=== PATIENT | male | born 1965 | race Caucasian/White ===

== ENCOUNTER 2017-09-03 14:07 | Inpatient (IN) | payer BC, OTHER ==
[~2017-09-03] VITALS: Ht 182.9 cm; Wt 77.1 kg
--- NOTE | 2017-09-03 15:30 | NUR ---
Pre Assessment: Pre- Assessment done at intake office, client 51 y/o male who is A/O X 4, and presents with a flushed face, fine and gross hand tremors, and diaphoretic. Client is coming from home and appropriately dressed, but disheveled with dirt on his hands and under his nails. Client makes appropriate eye contact and pleasant upon approach. Pt. is hyperverbal and his vitals in the intake office were BP: 111/78 P: 120 RR:18 O2sat 99%. T: 98.7 and denies any pain. Pt. states he has a past medical history of Dyslexia and ADHD and reports a history of Hydrocele. Pt. appears agitated and anxious but is completely cooperative at this point. Pt. denies HI/SI/AH and VH at this time. Medications taken at home: Centrum daily multivitamin PO daily Substance History: Pt. first began drinking at age 16. Currently pt. consumes 2L of vodka or whisky daily. Pt. has been drinking 2L for the past 25 years. Pt.s last drink was at 1200 today. Protocol regarding vitals Q4H, UDS, Blood work, and controlled substances discuss with client. He verbalizes understanding. PCP: I've only seen the juan f once and I don't know his name.
[2017-09-03] MEDS ORDERED: ONDANSETRON ODT 4 MG TAB.RAPDIS SL PRN (15:45)
[2017-09-03] MEDS ORDERED: LOPERAMIDE HCL 2 MG CAPSULE PO PRN ×2 (15:45)
[2017-09-03] MEDS ORDERED: LORAZEPAM 1 MG TABLET PO PRN (15:45)
[2017-09-03] MEDS ORDERED: LORAZEPAM 2 MG/1 ML VIAL IM PRN (15:45)
[2017-09-03] MEDS ORDERED: DICYCLOMINE HCL 20 MG TABLET PO PRN (15:45)
[2017-09-03] MEDS ORDERED: MIRALAX 17 GM POWD.PACK PO PRN (15:45)
[2017-09-03] MEDS ORDERED: ONDANSETRON 4 MG/2 ML VIAL IM PRN (15:45)
[2017-09-03] MEDS ORDERED: MAGNESIUM HYDROXIDE 30 ML LIQUID UDC PO PRN (15:45)
[2017-09-03] MEDS ORDERED: MAG HYDROX/AL HYDROX/SIMETH 30 ML LIQUID UDC PO PRN (15:45)
[2017-09-03] MEDS ORDERED: THIAMINE HCL 200 MG/2 ML VIAL IM ONE (15:45)
--- NOTE | 2017-09-03 15:45 | NUR ---
Admission Note: Pt. is 51 y/o male admitted for the medically supervised withdrawal of ETOH. Pt.s last drink was today at 1200 but states that in the last week or so if he does not drink at least one shot of vodka or whisky an hour he begins to shake. Pt. is appropriately dressed, but is unkempt and disheveled, with dirt on his hands. Upon approach pt. is pleasant, but guarded. Pt. is A/O X 4 hyperverbal, anxious and restless. Pt. maintains proper eye contact. Pt. states that this is his first time in treatment. He states the reason he came in was because Mandie never felt this way before. Stating that this is the first time hes ever felt withdrawal symptoms from not drinking consistently throughout the day. Pt. denies a history of seizures. Substance History: 1.ETOH : 2L daily for the past 25 years. Last use was today 09/03/2017 at 1200. Pt. states he first began consuming alcohol at age 16. Pt. states that he is seeking treatment today because hes starting to get tremors if he doesnt have a drink every hour. Pt. states he has been drinking two liters of vodka or whisky daily for the past 25 years. Pt. reports having used multiple substances in his lifetime but denies ever being addicted to anything or consistently using anything other than ETOH. Pt. states that the last time he was sober he lasted 4 years and it was about 10 years ago. Pt. states that he doesnt know why he drinks, that hes never really thought of it. Pt. also states that hes blacked out a handful of times while drinking but that its unusual. He reports that its negatively affected his life causing him a DUI and two divorces. His vitals are as follows BP: 111/78 P: 120 RR:18 O2sat 99%. T: 98.7 and denies any pain. Pt. states he has a past medical history of Dyslexia and ADHD and reports a history of Hydrocele, and a damaged rotator cuff on his right shoulder. Skin check performed and skin clean dry and intact. Bowel sounds active X 4 quadrants. Lung sounds clear. Pt. follows a regular diet at home and reports an allergy to cactus. Pt. states he smokes approximately 15 cigarettes a day. Currently pt. has a CIWA of 15. Pt. currently lives with his mother and counts her as his only support system. Pt. states that he has a son but has minimal contact with him. Pt. states he has a PCP but does not remember his name because hes only seen him once. Educated pt. on his plan of care. The units policies and procedures. Encouraged pt. to verbalize any concerns and emotions. Will provide pt. with a safe and structured environment. Will continue to monitor pt.s behavior for safety.
[2017-09-03] MEDS: LORAZEPAM 1 MG TABLET PO SCH ×2 (16:22→21:05)
[2017-09-03 16:26] LABS: *AMPHETAMINE, URINE NEGATIVE (NEGATIVE); *BARBITURATE, URINE NEGATIVE (NEGATIVE); *CANNABINOID, URINE NEGATIVE (NEGATIVE); *COCCAINE, URINE NEGATIVE (NEGATIVE); *OPIATE, URINE NEGATIVE (NEGATIVE); *PHENCYCLIDINE SCREEN,URINE NEGATIVE (NEGATIVE)
[2017-09-03] MEDS ORDERED: MULT-1169 PO (16:38)
--- NOTE | 2017-09-03 19:14 | NUR ---
End of Shift Note Pt. is a 51 y/o male admitted for the medically supervised withdrawal of ETOH. Pt. has a past medical history of ADHD and Dyslexia. Pt. was placed on a 4 day ativan taper first dose given today. Pt. is pleasant upon approach but guarded and hyperverbal. Pt. is visibly anxious, restless, irritable with gross motor tremors. At this time pt. is able to be re-directed and follows instructions. Pt. encouraged to verbalize concerns and emotions. Pt. compliant with blood draw and urine specimen collection. Last CIWA 15 at 1600. Pt. had 200ml of PO intake and voided X1. Will endorse pt.s behavior to oncoming shift.
--- NOTE | 2017-09-03 19:15 | NUR ---
Start of shift note Received report from day shift nurse. Pt is a 51 yo male, A+Ox4, presenting to [facility] for ETOH withdrawal. Pt noted to be agitated, anxious, restless, and having fine tremors. Pt has HX of ADHD which will be monitored during shift. Pt is on 5 day Ativan taper, tolerated well. Respirations even and unlabored. Will continue to monitor.
[2017-09-03 19:52] LABS: BASOPHILS # (AUTO) 0.1 K/uL (0.0-8.0); BASOPHILS % (AUTO) 0.9 % (0.0-2.0); EOSINOPHILS % (AUTO) 0.6 % (0.0-7.0); HEMATOCRIT 36.5 % (36.7-47.1); HEMOGLOBIN 12.6 g/dL (12.5-16.3); LYMPHOCYTES # (AUTO) 1.3 K/uL (20.0-40.0); LYMPHOCYTES % (AUTO) 23.2 % (20.5-51.5); MEAN CORPUSCULAR HEMOGLOBIN 33.5 uug (23.8-33.4); MEAN CORPUSCULAR HGB CONC 34 g/dL (32.5-36.3); MEAN CORPUSCULAR VOLUME 97.2 fL (73.0-96.2); MONOCYTES # (AUTO) 0.8 K/uL (2.0-10.0); MONOCYTES % (AUTO) 14.2 % (0.0-11.0); NEUTROPHILS # (AUTO) 3.5 K/uL (1.8-8.9); NEUTROPHILS % (AUTO) 61.1 % (38.5-71.5); PLATELET COUNT (AUTO) 214 K/uL (152-348); RED BLOOD CELL COUNT(AUTO) 3.76 MIL/uL (4.06-5.63); WHITE BLOOD COUNT (AUTO) 5.7 K/uL (3.6-10.2)
[2017-09-03] MEDS ORDERED: NICOTINE 14 MG/24HR PATCH TD PRN (20:00)
[2017-09-03] MEDS ORDERED: NICOTINE POLACRILEX 4 MG GUM-PK OF TEN BC PRN (20:00)
[2017-09-03 20:08] LABS: BILIRUBIN,TOTAL 0.4 mg/dL (0.2-1.0); MAGNESIUM 1.9 mg/dL (1.8-2.4); POTASSIUM 4.3 mmol/L (3.5-5.1); TOTAL PROTEIN, SERUM 7.9 g/dL (6.4-8.2)
[2017-09-03 20:34] LABS: THYROID STIMULATING HORMONE 1.138 mIU/mL (0.358-3.740)
[2017-09-03 20:37] VITALS: BP 128/80
[2017-09-04 00:15] VITALS: BP 119/84
[2017-09-04] MEDS: LORAZEPAM 1 MG TABLET PO PRN ×3 (00:34→22:20)
--- NOTE | 2017-09-04 00:34 | NUR ---
PRN Ativan 2mg Pt c/o anxiety and noted with tremors and CIWA: 13. PRN Ativan 2mg given and tolerated well. Will reassess within 1 HR. Will continue to monitor.
--- NOTE | 2017-09-04 01:30 | NUR ---
PRN Ativan 2mg Reassessment Medication effective. Pt expresses reduction in anxiety with CIWA: 10. No s/s of ASE noted at this time. Respirations even and unlabored. Will continue to monitor.
[2017-09-04 04:12] VITALS: BP 116/78
--- NOTE | 2017-09-04 07:02 | NUR ---
End of shift note Pt was continuously noted to be anxious, agitated, restless, having tremors, sweats, and chills. Pt remained in room for majority of shift except to get food from kitchen and to go smoke on smoking patio. Pt is on 5 day Ativan taper, tolerated well. Pt was given PRN Ativan 2mg @0034. Pt slept for a total of 6 HRS. Last CIWA: 9 @0400. Respirations even and unlabored. Will endorse to day shift nurse.
[2017-09-04 08:00] VITALS: BP 157/104
--- NOTE | 2017-09-04 08:05 | NUR ---
START OF SHIFT: RECEIVED PT A/O X 4. HE PRESENTS WITH ANXIOUS MOOD AND GUARDED AFFECT. TREMORS NOTED TO BUE. HE REPORTS SEVERE ANXIETY,HE STATES HE FEELS SHAKY INSIDE. HE REPORTS POOR APPETITE AND STATES HE FEELS RESTLESS. CIWA 16. ATIVAN TAPER IN PROGRESS TO MANAGE S/S OF W/D. ENCOURAGED INCREASED FLUIDS AND REST TODAY. PPD PLANTED TO RFA. WILL CONTINUE TO MONITOR AND MANAGE S/S OF W/D.
[2017-09-04] MEDS: FOLIC ACID 1 MG TABLET PO SCH (08:10)
[2017-09-04] MEDS: THIAMINE HCL 100 MG TABLET PO SCH (08:11)
[2017-09-04] MEDS: MULTIVITAMINS,THERAPEUTIC TABLET PO SCH (08:11)
[2017-09-04] MEDS: CLONIDINE HCL 0.1 MG TABLET PO PRN (08:11)
[2017-09-04] MEDS: LORAZEPAM 1 MG TABLET PO SCH ×3 (08:12→20:04)
[2017-09-04] MEDS ORDERED: TUBERCULIN,PURIF.PROT.DERIV. 5 TU/0.1 ML TEST ID ONE (09:00)
[2017-09-04 12:00] VITALS: BP 144/98
[2017-09-04] MEDS ORDERED: LORAZEPAM 1 MG TABLET PO ONE (12:00)
[2017-09-04] MEDS: IBUPROFEN 400 MG TABLET PO PRN ×2 (14:15→18:22)
--- NOTE | 2017-09-04 14:20 | NUR ---
PRN MOTRIN GIVEN FOR REPORTED R SHOULDER PAIN 6/10 ON SCALE. WILL MONITOR EFFECTIVENESS.
--- NOTE | 2017-09-04 15:20 | NUR ---
PRN MOTRIN MILDLY EFFECTIVE. HE REPORTS PAIN IS 4/10 ON SCALE.
[2017-09-04 16:00] VITALS: BP 139/97
--- NOTE | 2017-09-04 17:13 | NUR ---
Therapist prompted client to attend the next group meeting. Client stated that he would attend.
--- NOTE | 2017-09-04 18:25 | NUR ---
PRN MOTRIN 400 MG GIVEN FOR REPORTED R SHOULDER PAIN 10/20. WILL MONITOR EFFECTIVENESS.
--- NOTE | 2017-09-04 18:26 | NUR ---
PRN ATIVAN 2 MG PO PRN GIVEN FOR CIWA 14. HE REPORTS ANXIETY AND IS VERY TREMULOUS. HE STATES HE FEELS RESTLESS AND AGITATED. WILL MONITOR EFFECTIVENESS.
[2017-09-04] MEDS ORDERED: METHYL SALICYLATE/MENTHOL CREAM 28 GM TUBE TOP PRN (18:45)
--- NOTE | 2017-09-04 18:50 | NUR ---
END OF SHIFT: PT CONTINUES ON ATIVAN TAPER TO MANAGE S/S OF W/D WHICH INCLUDE TREMORS TO BUE ,ANXIETY,FATIGUE,RESTLESSNESS AND IRRITABILITY. LAST CIWA 11. PRN ATIVAN GIVEN AND EFFECTIVE. HE ALSO REPORTS R SHOULDER PAIN FROM ROTATOR CUFF ISSUES AND PRN MOTRIN GIVEN X 2 AND MILDLY EFFECTIVE. PT WAS COMPLIANT WITH INCREASED FLUIDS BUT STATED HE WAS TOO RESTLESS TO SLEEP TODAY. PPD PLANTED TO RFA. WILL PASS SHIFT REPORT TO ONCOMING NIGHT NURSE.
--- NOTE | 2017-09-04 19:25 | NUR ---
PT STATES MOTRIN WAS MILDLY EFFECTIVE. PAIN 5/10 ON SCALE. HE STATES ATIVAN PRN WAS EFFECTIVE AEB CIWA 11.HE STATES HE FEELS A LITTLE BETTER.
--- NOTE | 2017-09-04 19:26 | NUR ---
Start of shift note Received report from day shift nurse. Pt is a 51 yo male, A+Ox4, presenting to [facility] for ETOH withdrawal. Pt noted to be anxious, agitated, restless, having tremors, sweats, chills, and right shoulder pain. Pt has HX of ADHD which will be monitored during shift. Pt is on 5 day Ativan taper, tolerated well. Respirations even and unlabored. Will continue to monitor.
[2017-09-04] MEDS: GABAPENTIN 300 MG CAPSULE PO SCH (20:04)
[2017-09-04 20:20] VITALS: BP 136/90
[2017-09-04] MEDS: diphenhydrAMINE 50 MG CAPSULE PO PRN (22:20)
--- NOTE | 2017-09-04 22:20 | NUR ---
PRN Ativan 2mg and Benadryl Pt c/o anxiety and noted with CIWA: 13 and inability to sleep. Pt was given PRN Ativan 2mg and PRN Benadryl. Will reassess within 1 HR. Will continue to monitor.
--- NOTE | 2017-09-04 23:15 | NUR ---
PRN Ativan 2mg and Benadryl Reassessment Medications effective. Pt expresses reduction in anxiety with CIWA: 10. Pt is resting well in bed. No s/s of ASE noted at this time. Respirations even and unlabored. Will continue to monitor.
[2017-09-05] VITALS (8 sets, daily range): BP systolic 118–141; BP diastolic 85–96
--- NOTE | 2017-09-05 06:57 | NUR ---
End of shift note Pt was continuously noted to be anxious, agitated, restless, having sweats, chills, and tremors. Pt remained in room for majority of shift except to get food from kitchen and to go smoke on smoking patio. Pt is on 5 day Ativan taper, tolerated well. Pt was given PRN Ativan 2mg and PRN Benadryl @2234. Pt slept for a total of 7 HRS. Last CIWA: 9 @0400. Respirations even and unlabored. Will endorse to day shift nurse.
--- NOTE | 2017-09-05 07:25 | NUR ---
BEGINNING OF SHIFT Patient endorsement report received from projection camera operator nurse, all pertinent information discussed. Patient is a 51 year old male with admitting Dx: etoh withdrawal. Patient currently with ongoing Ativan taper as ordered. continues under close observation. fall and seizure precautions in place and observed at all times. Patient received awake, alert and oriented x4. will monitor closely, will educated regarding plan of care for the day, and medication regimen. Patient received PRN:benadryl during projection camera operator. last ciwa score of: 7. patient slept 8 hours. will continue to monitor closely. safety measures in place.
[2017-09-05 08:25] LABS: BILIRUBIN,DIRECT 0.3 mg/dL (0.0-0.2); MAGNESIUM 1.7 mg/dL (1.8-2.4); POTASSIUM 3.9 mmol/L (3.5-5.1)
[2017-09-05] MEDS: MULTIVITAMINS,THERAPEUTIC TABLET PO SCH (08:33)
[2017-09-05] MEDS: FOLIC ACID 1 MG TABLET PO SCH (08:33)
[2017-09-05] MEDS: THIAMINE HCL 100 MG TABLET PO SCH (08:33)
[2017-09-05] MEDS: GABAPENTIN 300 MG CAPSULE PO SCH ×3 (08:33→21:34)
[2017-09-05] MEDS ORDERED: LORAZEPAM 1 MG TABLET PO SCH ×3 (09:00→21:00)
[2017-09-05] MEDS: CLONIDINE HCL 0.1 MG TABLET PO PRN (10:55)
[2017-09-05] MEDS: KETOROLAC TROMETHAMINE 30 MG INJ IM PRN (10:58)
--- NOTE | 2017-09-05 10:58 | NUR ---
PRN CLONIDINE TORADOL Patient c/o generalized pain to body 11/20. BP: 141/96 hr: 91. Patient was administered clonidine 0.1mg PO and Toradol Inj as ordered, will monitor effectiveness of medications.
[2017-09-05] MEDS: LORAZEPAM 1 MG TABLET PO PRN (11:04)
--- NOTE | 2017-09-05 11:04 | NUR ---
PRN ATIVAN Patient with severe tremors on bilateral hands, patient also with restlessness, inability to sit still and increased anxiety. Patient with curent ciwa score of: 15. Administered Ativan 2 mg PO as per orders. Dr. Gonsalez aware of patients current status. will continue to monitor closely.
--- NOTE | 2017-09-05 11:58 | NUR ---
CLONIDINE/TORADOL REASSESSMENT medications effective current BP: 131/94 HR: 91. Patient reports current pain level is 3/10, tolerable as per patient. Safety measures in place, will continue to monitor.
--- NOTE | 2017-09-05 12:04 | NUR ---
ATIVAN REASSESSMENT Decrease in CIWA score from 15 to 13, noted less tremulous, safety measures in place. call light with in reach, will continue to monitor.
[2017-09-05 12:07] LABS: HEPATITIS B SURFACE AG Negative (Negative)
[2017-09-05] MEDS ORDERED: MAGNESIUM OXIDE 400 MG TABLET PO ONE (13:00)
[2017-09-05] MEDS: LORAZEPAM 1 MG TABLET PO SCH ×3 (14:14→21:34)
[2017-09-05] MEDS: IBUPROFEN 600 MG TABLET PO PRN (15:29)
--- NOTE | 2017-09-05 15:29 | NUR ---
PRN IBUPROFEN Patient reports complain of body aches 09/20, administered ibuprofen as ordered, will monitor effectiveness of medication.
--- NOTE | 2017-09-05 16:29 | NUR ---
IBUPROFEN REASSESSMENT Patient reports medication with relief, current pain level 2/10, tolerable pain as per patient, will continue to monitor.
--- NOTE | 2017-09-05 18:54 | NUR ---
END OF SHIFT patient monitored closely during shift. Patient alert and oriented x4. Admitting Dx: etoh withdrawal. Patient noted disheveled, and unshaven with depressed, and anxious mood. BP monitored closely during shift. Patient very tremulous throughout shift. Continues on Ativan taper as ordered. Taper was modified by Dr. umanzor during shift. patient also received a one time dose of Ativan 2 mg PO during shift. Patient presented with: anxiety, restlessness, agitation, difficulty sitting still, and severe tremors. Initial ciwa score of: 15, last ciwa score of: 14. Patient encouraged participation in therapy sessions, patient denies any SI/HI, noted attending and participating. Patient was encouraged to verbalize feelings, encouraged to develop coping skills and utilization of non pharmacological interventions. Encouraged patient to increase PO fluid intake as tolerated. Patients safety measures are in place. call light kept within reach, will continue to monitor. Endorsed to staff nurse, all pertinent information discussed.
--- NOTE | 2017-09-05 19:30 | NUR ---
Start of Shift Pt is a 51 y/o male admitted 09/03/17 for medically managed withdrawal/detox from ETOH (2 L Vodka/day).Pt is on a 5 day Ativan taper, with last reported CIWA of 14 Pt is noted to be a full code with allergies to cactus and a regular diet. Pt is found sleeping in bed in room. Room is messy with food, drinks, and clothing scattered about and on floor. Patient arousable to voice. Pt is anxious, tremulous, able to answer questions and follow commands appropriately, A&O x 4, Evening meds reviewed with pt, Benedryl 50mg PO requested for insomnia, pt questioning availability of Seroquel-told to speak with DR in am. Will continue to monitor pt for shift until morning endorsement, promptly attending to all pt needs.
[2017-09-05] MEDS: diphenhydrAMINE 50 MG CAPSULE PO PRN (21:34)
--- NOTE | 2017-09-05 21:34 | NUR ---
PRN Med Benedryl 50mg PO given for insomnia per pt request. Will continue to monitor, reassessing in 1 hour, and promptly attending to all pt needs.
--- NOTE | 2017-09-05 22:34 | NUR ---
PRN Reassessment Benedryl 50mg PO given 1 hour prior for insomnia. At present, pt reports feeling drowsy. Med effective. Will continue to monitor pt, promptly attending to all pt needs.
--- NOTE | 2017-09-06 | NUR ---
VS's COWS/CIWA Deferred Midnight VS's and COWS/CIWA deferred r/t pt sleeping/refused. RR 14, even and nonlabored. Will continue to monitor and promptly attend to all pt needs. Addendum: 09/06/17 at 0011 by CLIFFORD PACE RN Charted on incorrect patient in error
--- NOTE | 2017-09-06 | NUR ---
VS's CIWA Deferred Midnight VS's and CIWA deferred r/t pt sleeping/refused. RR 14, even and nonlabored. Will continue to monitor and promptly attend to all pt needs.
--- NOTE | 2017-09-06 04:00 | NUR ---
VS's CIWA Deferred 0400 VS's and CIWA deferred r/t pt sleeping/refused. RR 14, even and nonlabored. Will continue to monitor and promptly attend to all pt needs.
--- NOTE | 2017-09-06 06:36 | NUR ---
End of Shift Pt is a 51 y/o male admitted 09/03/17 for medically managed withdrawal/detox from ETOH (2 L Vodka/day).Pt is on a 5 day Ativan taper, with reported CIWA of 16 at 1999. Pt is noted to be a full code with allergies to cactus and a regular diet. Pt moderately tremulous. PRNs for shift included Benedryl 50mg PO for insomnia. Pt slept 8 hours, with 1000 intake, 1 voids and 0 BMs. Will continue to monitor pt for shift until morning endorsement, promptly attending to all pt needs.
--- NOTE | 2017-09-06 07:39 | NUR ---
Start of shift note; Received report from night nurse. Patient is a 51 year old male admitted on 09/03/17 for ETOH withdrawals. Patient was placed on a 5 day Ativan taper. Patient received PRN Benadryl last night noted to be effective per endorsement. Patient is AOX4, appears anxious, complaining of diaphoresis and fatigue and insomnia. Educated patient regarding the importance of compliance to treatment and medication regime, patient verbalized understanding. Encouraged patient participate in group activities and therapy. All safety measures secured. Will continue to monitor patient.
[2017-09-06 08:00] VITALS: BP 128/97
[2017-09-06] MEDS: GABAPENTIN 300 MG CAPSULE PO SCH ×3 (08:21→20:44)
[2017-09-06] MEDS: ACETAMINOPHEN 325 MG TABLET PO PRN (08:22)
[2017-09-06] MEDS: THIAMINE HCL 100 MG TABLET PO SCH (08:22)
[2017-09-06] MEDS: MULTIVITAMINS,THERAPEUTIC TABLET PO SCH (08:22)
[2017-09-06] MEDS: FOLIC ACID 1 MG TABLET PO SCH (08:22)
--- NOTE | 2017-09-06 08:22 | NUR ---
PRN Tylenol; Patient is complaining of toothache/pain rated 6/10 on adult pain scale. PRN Tylenol 650mg given as ordered for pain. Will continue to monitor for effectiveness of medication.
[2017-09-06] MEDS ORDERED: LORAZEPAM 1 MG TABLET PO SCH (09:00)
[2017-09-06] MEDS ORDERED: PNEUMOCOCCAL 23-VAL P-SAC VAC 0.5 ML VIAL IM ONE (09:00)
--- NOTE | 2017-09-06 09:22 | NUR ---
Re-assessment; Patient is complaining of severe pain related to toothache/pain /headache. PRN Tylenol noted to be ineffective.
[2017-09-06] MEDS: LORAZEPAM 1 MG TABLET PO PRN (09:47)
[2017-09-06] MEDS: KETOROLAC TROMETHAMINE 30 MG INJ IM PRN (09:48)
--- NOTE | 2017-09-06 09:48 | NUR ---
PRN Ativan/ Toradol; Patient's current CIWA score is 15 manifested by tremors, anxiety, headache, sweats, agitation and stomach cramps. PRN Ativan 2mg PO given as per MD order for CIWA >12. PRN Toradol 30mg IM given for severe pain/toothache rated 9/10 on adult pain scale. Will continue to monitor patient for effectiveness of medication.
--- NOTE | 2017-09-06 10:48 | NUR ---
Re-assessment; Patient's CIWA score has improved, from score of 15 to 13. PRN Ativan noted to be effective. Patient's pain has improved. Patient's current pain is 4/10. PRN Toradol noted to be effective.
[2017-09-06] MEDS ORDERED: hydrALAZINE HCL 50 MG TABLET PO PRN (11:30)
[2017-09-06 12:00] VITALS: BP 129/91
[2017-09-06] MEDS ORDERED: PROPRANOLOL HCL 20 MG TABLET PO SCH (12:00)
[2017-09-06] MEDS: LORAZEPAM 1 MG TABLET PO SCH ×3 (12:21→20:45)
--- NOTE | 2017-09-06 12:47 | NUR ---
Therapist prompted client to attend group counseling sessions and client agreed.
[2017-09-06 16:00] VITALS: BP 128/95
--- NOTE | 2017-09-06 17:03 | NUR ---
Endorsement; Patient is currently AOX4 in his room. Detailed report given to covering nurse.
--- NOTE | 2017-09-06 17:04 | NUR ---
Assumed Care for patient at this time. He is currently in his room, eating dinner. VS stable.
--- NOTE | 2017-09-06 19:04 | NUR ---
End of Shift Notes: Patient continues to be on a modified 5-day Ativan taper as ordered. Withdrawal symptoms monitored closely after assuming care. PRN Tylenol given at 0822 toothache/headache. PRN Ativan and Toradol given at 0922. Last CI. All needs met and attended. Will continue to monitor.
--- NOTE | 2017-09-06 19:30 | NUR ---
Start of Shift Pt is a 51 y/o male admitted 09/03/17 for medically managed withdrawal/detox from ETOH (2 L Vodka/day).Pt continues on a 5 day Ativan taper, with last reported CIWA of 11. Pt is noted to be a full code with allergies to cactus and a regular diet. Pt is seen in hallway. Pt is pleasant/cooperative, c/o anxiety, tremulous, says "I can't believe the withdrawal is still going on". Pt also appears agitated, but consolable and redirectable, amenable to suggestions. Room is messy with food, drinks, and clothing scattered about and on floor. Pt is able to answer questions and follow commands appropriately, A&O x 4, Evening meds reviewed with pt, Seroquel 50mg PO and Inderal 20mg PO noted to be newly ordered. Will continue to monitor pt for shift until morning endorsement, promptly attending to all pt needs.
[2017-09-06 20:00] VITALS: BP 136/92
[2017-09-06] MEDS: PROPRANOLOL HCL 20 MG TABLET PO SCH (20:44)
[2017-09-06] MEDS: QUETIAPINE FUMARATE 25 MG TABLET PO SCH (20:45)
--- NOTE | 2017-09-07 | NUR ---
VS's CIWA Deferred Midnight VS's and CIWA deferred r/t pt sleeping/refused. RR 14, even and nonlabored. Will continue to monitor for duration of shift, promptly attending to all pt needs.
--- NOTE | 2017-09-07 04:00 | NUR ---
VS's CIWA Deferred 0400 VS's and CIWA deferred r/t pt sleeping/refused. RR 14, even and nonlabored. Will continue to monitor for duration of shift, promptly attending to all pt needs.
--- NOTE | 2017-09-07 06:37 | NUR ---
End of Shift Pt is a 51 y/o male admitted 09/03/17 for medically managed withdrawal/detox from ETOH (2 L Vodka/day).Pt continues on a 5 day Ativan taper, with last reported CIWA of 14 at 1999. Pt is noted to be a full code with allergies to cactus and a regular diet. PRN's for shift included . Patient slept for 7 hours, with 2072 input, 2 voids and 0 BM's. Will continue to monitor pt for shift until morning endorsement, promptly attending to all pt needs.
[2017-09-07 07:04] LABS: BILIRUBIN,DIRECT 0.1 mg/dL (0.0-0.2); BILIRUBIN,TOTAL 0.4 mg/dL (0.2-1.0); CREATININE 1.1 mg/dL (0.6-1.3); POTASSIUM 4.2 mmol/L (3.5-5.1); TOTAL PROTEIN, SERUM 6.8 g/dL (6.4-8.2)
[2017-09-07 08:00] VITALS: BP 124/101
--- NOTE | 2017-09-07 08:10 | NUR ---
START OF SHIFT: RECEIVED PT A/O X 4. HE HAS FINE TREMORS TO BUE. HE REPORTS ANXIETY AND NIGHT SWEATS. CIWA 8. ATIVAN TAPER IN PROGRESS TO MANAGE S/S OF W/D, ENCOURAGED GROUP ATTENDANCE TO IMPROVE COPING SKILLS AND PREVENT RELAPSE. WILL CONTINUE TO MONITOR AND MANAGE S/S OF W/D.
[2017-09-07] MEDS: FOLIC ACID 1 MG TABLET PO SCH (08:22)
[2017-09-07] MEDS: LORAZEPAM 1 MG TABLET PO SCH ×4 (08:22→21:00)
[2017-09-07] MEDS: THIAMINE HCL 100 MG TABLET PO SCH (08:23)
[2017-09-07] MEDS: GABAPENTIN 300 MG CAPSULE PO SCH ×3 (08:23→21:00)
[2017-09-07] MEDS: PROPRANOLOL HCL 20 MG TABLET PO SCH ×2 (08:23→21:00)
[2017-09-07] MEDS: MULTIVITAMINS,THERAPEUTIC TABLET PO SCH (08:23)
[2017-09-07] MEDS ORDERED: LORAZEPAM 1 MG TABLET PO SCH (09:00)
[2017-09-07 12:00] VITALS: BP 123/86
--- NOTE | 2017-09-07 13:43 | NUR ---
Client was prompted to attend group therapy sessions and client agreed.
[2017-09-07 16:00] VITALS: BP 134/93
[2017-09-07] MEDS: IBUPROFEN 600 MG TABLET PO PRN ×2 (17:36→21:00)
--- NOTE | 2017-09-07 17:37 | NUR ---
PRN MOTRIN 600 MG GIVEN FOR REPORTED H/A 8/10 ON PAIN SCALE. WILL MONITOR EFFECTIVENESS.
--- NOTE | 2017-09-07 18:07 | NUR ---
PT STATES THE MOTRIN WAS EFFECTIVE. PAIN NOW 06/20. WILL CONTINUE TO MONITOR.
--- NOTE | 2017-09-07 19:17 | NUR ---
END OF SHIFT: PT CONTINUES ON ATIVAN TAPER TO MANAGE S/S OF W/D WHICH INCLUDE ANXIETY AND RESTLESSNESS. LAST CIWA 6. HE WAS ODOROUS AND HIS ROOM SMELLED. ENCOURAGED A SHOWER AND HE WAS COMPLIANT. LINENS CHANGED. PT ATTENDED GROUPS AND WAS COMPLIANT WITH MEDS. WILL PASS SHIFT REPORT TO ONCOMING NIGHT NURSE.
--- NOTE | 2017-09-07 19:30 | NUR ---
START OF SHIFT Pt is a 51 y/o male admitted on 09/03/17 for ETOH withdrawal. Pt is on a 5 day Ativan taper that started on 09/03/17, tolerating well. Last CIWA 6 and PRN Motrin for headache administered during day shift. Upon assessment pt presents with anxiety, restlessness, headache, unkempt room, racing thoughts, difficulty falling and staying asleep. Medications due. Safety measures in place. Call light within reach. Will continue to monitor.
[2017-09-07 20:00] VITALS: BP 132/89
[2017-09-07] MEDS: QUETIAPINE FUMARATE 25 MG TABLET PO SCH (21:00)
--- NOTE | 2017-09-07 21:00 | NUR ---
PRN MOTRIN ADMINISTRATION Pt reports headache 08/20. Safety measures in place. Call light within reach. Will continue to monitor.
--- NOTE | 2017-09-07 22:00 | NUR ---
PRN MOTRIN REASSESSMENT Pt reports headache improved to tolerable level. Safety measures in place. Call light within reach. Will continue to monitor.
[2017-09-08] VITALS: BP 108/67
--- NOTE | 2017-09-08 | NUR ---
CIWA DEFERRED Pt laying in bed with eyes closed, CIWA deferred, to be assessed when pt is awake per orders. Respirations even and unlabored. Safety measures in place. Call light within reach. Will continue to monitor.
--- NOTE | 2017-09-08 04:00 | NUR ---
CIWA DEFERRED AND VITALS REFUSED Pt laying in bed with eyes closed, CIWA deferred, to be assessed when pt is awake per orders. Vitals refused. Respirations even and unlabored. Safety measures in place. Call light within reach. Will continue to monitor.
[2017-09-08 07:12] LABS: BILIRUBIN,DIRECT 0.1 mg/dL (0.0-0.2); BILIRUBIN,TOTAL 0.2 mg/dL (0.2-1.0); TOTAL PROTEIN, SERUM 6.9 g/dL (6.4-8.2)
--- NOTE | 2017-09-08 07:17 | NUR ---
END OF SHIFT Pt is a 51 y/o male admitted on 09/03/17 for ETOH withdrawal. Pt is on a 5 day Ativan taper that started on 09/03/17, tolerating well. Pt presented with anxiety, restlessness, headache, unkempt room, racing thoughts, difficulty falling and staying asleep. Scheduled medications and PRN Motrin administered, effective in S/S of withdrawal as verbalized by pt. Pt slept 5 hours. Intake 3000 ml, void x 10, stool x 0. Safety measures in place. Call light within reach. Pts needs have been met. Endorsed to day shift nurse.
[2017-09-08 08:00] VITALS: BP 119/80
--- NOTE | 2017-09-08 08:03 | NUR ---
START OF SHIFT NOTE Received report from night nurse, 51 year old male admitted for ETOH withdrawal. Patient continues on Ativan taper tolerating well. Per endorsement patient received PRN Motrin for headache effective per night nurse, last CIWA was 8, slept for 5 hours. Received patient asleep breathing normal no SOB noted. responsive to verbal and tactile stimuli. Skin intact warm and dry to touch. All safety measures in place. Will cont to monitor.
[2017-09-08] MEDS: LORAZEPAM 1 MG TABLET PO SCH ×3 (08:16→21:30)
[2017-09-08] MEDS: GABAPENTIN 300 MG CAPSULE PO SCH ×3 (08:16→21:30)
[2017-09-08] MEDS: FOLIC ACID 1 MG TABLET PO SCH (08:16)
[2017-09-08] MEDS: MULTIVITAMINS,THERAPEUTIC TABLET PO SCH (08:16)
[2017-09-08] MEDS: THIAMINE HCL 100 MG TABLET PO SCH (08:16)
[2017-09-08] MEDS: PROPRANOLOL HCL 20 MG TABLET PO SCH ×2 (08:17→21:30)
[2017-09-08] MEDS ORDERED: LORAZEPAM 1 MG TABLET PO SCH (09:00)
[2017-09-08 12:00] VITALS: BP 123/88
--- NOTE | 2017-09-08 14:41 | NUR ---
Client was prompted to attend group counseling sessions and client agreed.
[2017-09-08 16:00] VITALS: BP 119/75
[2017-09-08] MEDS: ACETAMINOPHEN 325 MG TABLET PO PRN (18:26)
--- NOTE | 2017-09-08 18:26 | NUR ---
PRN TYLENOL Patient c/o of headache 08/20. PRN Tylenol 650mg PO given as ordered. Will cont to monitor and reassess.
--- NOTE | 2017-09-08 18:56 | NUR ---
END OF SHIFT NOTE Gave report night nurse, patient continues with Ativan taper tolerating well. During shift pt presented with anxiety, agitation, restless, pt received scheduled medications patient did received PRN Tylenol during shift endorsed to night nurse to reassess the patient. Patient attended groups and activities. Vital signs WNL. Patient remained compliant with medications and treatment. Endorsed patient to night nurse to stable condition.
--- NOTE | 2017-09-08 19:30 | NUR ---
START OF SHIFT Pt is a 51 y/o male admitted on 09/03/17 for ETOH withdrawal. Pt is on a 5 day Ativan taper that started on 09/03/17, tolerating well. Last CIWA 10 and PRN Tylenol administered for headache during day shift. Upon assessment pt presents with anxiety, restlessness, intermittent headache, flushed skin, intermittent sweats, racing thoughts, difficulty falling and staying asleep and unkempt room. Medications due. Safety measures in place. Call light within reach. Will continue to monitor.
[2017-09-08 20:00] VITALS: BP 125/83
[2017-09-08] MEDS: QUETIAPINE FUMARATE 25 MG TABLET PO SCH (21:29)
[2017-09-08] MEDS: diphenhydrAMINE 50 MG CAPSULE PO PRN (21:47)
--- NOTE | 2017-09-08 21:47 | NUR ---
PRN BENADRYL ADMINISTRATION Pt requests Benadryl for sleep aid. Safety measures in place. Call light within reach. Will continue to monitor.
--- NOTE | 2017-09-08 22:47 | NUR ---
PRN BENADRYL REASSESSMENT Pt laying in bed with eyes closed, medication noted effective. Respirations even and unlabored. Safety measures in place. Call light within reach. Will continue to monitor.
--- NOTE | 2017-09-09 07:31 | NUR ---
END OF SHIFT Pt is a 51 y/o male admitted on 09/03/17 for ETOH withdrawal. Pt is on a 5 day Ativan taper that started on 09/03/17, tolerating well. Pt presented with anxiety, restlessness, intermittent headache, flushed skin, intermittent sweats, racing thoughts, difficulty falling and staying asleep and unkempt room. Scheduled medications and PRN Benadryl administered, effective in S/S of withdrawal as verbalized by pt. Last CIWA 7. Pt slept 6 hours. Intake 1500 ml, void x 3, stool x 0. Safety measures in place. Call light within reach. Pts needs have been met. Endorsed to day shift nurse.
--- NOTE | 2017-09-09 07:34 | NUR ---
Start Of Shift Report received from anchor tack puller nurse. Pt is a 51 y/o male admitted on 09/03/17 for ETOH withdrawal. Per anchor tack puller nurse pts CIWA was a 7 at midnight. Upon start of shift pt was in his room, when greeted pt stated Im feeling a bit anxious, do I have medications for the morning today? . Pt was anxious, presented with sweats and tremors. Pts room observed, pts clothes are thrown around the room. Pt is having difficulty staying still. During assessment Pt A&O x 3 lung sounds clear. Pt is currently on a 5 day Ativan taper to manage withdrawal symptoms. Pt received PRN Benadryl to help him sleep last night, per Pt medication was effective. Pt slept a total of 6 hours. Encouraged pt to drink plenty of fluids to help facilitate detox process. Pt has an Abdominal Ultrasound today around 9-930am. Pt has been NPO since midnight. Bed in lowest position. Side rails up x2. Call light functioning and within reach. All needs attended and met. Will continue to monitor.
[2017-09-09 08:00] VITALS: BP 134/96
[2017-09-09] MEDS ORDERED: LORAZEPAM 1 MG TABLET PO SCH (09:00)
[2017-09-09] MEDS: THIAMINE HCL 100 MG TABLET PO SCH (09:08)
[2017-09-09] MEDS: MULTIVITAMINS,THERAPEUTIC TABLET PO SCH (09:08)
[2017-09-09] MEDS: GABAPENTIN 300 MG CAPSULE PO SCH ×4 (09:08→22:49)
[2017-09-09] MEDS: FOLIC ACID 1 MG TABLET PO SCH (09:08)
[2017-09-09] MEDS: PROPRANOLOL HCL 20 MG TABLET PO SCH ×2 (09:09→22:49)
[2017-09-09 12:00] VITALS: BP 127/79
--- NOTE | 2017-09-09 15:24 | NUR ---
Client was prompted to attend group sessions and agreed to do so.
[2017-09-09 16:00] VITALS: BP 135/90
--- NOTE | 2017-09-09 19:04 | NUR ---
End Of Shift Report given to night nurse nurse, plan of care reviewed, VS monitored closely q 4 hours. Withdrawal symptoms were closely monitored, medications given as scheduled. Initial CIWA 8. Patient encouraged adequate PO fluid intake as tolerated. Patient presented with tremors sweats, and anxiety during the day. Pt did not receive any PRN medications during the day. CIWA 5. Per patient Ativan have been helping him with his withdrawal symptoms. Pt had his abdominal ultra sound done, results made aware to MD. Pt ate all of his meals, attended some groups and activities. Patient encouraged to attend all group therapies/sessions to learn new coping skills to recent relapse, patient denies SI/HI. all safety measures in place, bed in lowest locked position, call light within reach. All needs met and attended.
--- NOTE | 2017-09-09 19:15 | NUR ---
Start of shift note Received report from day shift nurse. Pt is a 51 yo male, A+Ox4, presenting to [facility] for ETOH withdrawal. Pt noted to be anxious, agitated, restless, and having fine tremors. Pt has HX of ADHD which will be monitored during shift. Pt has completed 5 day Ativan taper, tolerated well. Respirations even and unlabored. Will continue to monitor.
[2017-09-09 20:33] VITALS: BP 138/96
[2017-09-09] MEDS: QUETIAPINE FUMARATE 25 MG TABLET PO SCH (22:49)
[2017-09-10 00:20] VITALS: BP 132/82
[2017-09-10] MEDS ORDERED: QUET25TA PO (00:41)
[2017-09-10] MEDS ORDERED: HYDR50TA68 PO (00:41)
[2017-09-10] MEDS ORDERED: GABA-534 PO (00:41)
[2017-09-10] MEDS ORDERED: PROP20TA19 PO (00:41)
[2017-09-10] MEDS ORDERED: IBUP-1955 PO (00:41)
[2017-09-10 04:21] VITALS: BP 128/79
--- NOTE | 2017-09-10 07:00 | NUR ---
End of shift note Pt was continuously noted with anxiety, agitation, restlessness, fine tremors, and sweats. Pt remained in room for majority of shift except to get food from kitchen, to go smoke on smoking patio, and to interact with other patients in recreational room. Pt has completed 5 day Ativan taper, tolerated well, and is due for discharge today. Pt was not given any PRN medications during shift. Pt slept for a total of 7 HRS. Last CIWA: 4 @0400. Respirations even and unlabored. Will endorse to day shift nurse.
--- NOTE | 2017-09-10 07:44 | NUR ---
BEGINNING OF SHIFT Patient endorsement report received from plant operator/shift supervisor nurse, all pertinent information discussed. Patient is a 51 year old male with admitting Dx: etoh withdrawal. patient completed Ativan taper as ordered, well tolerated, no ASE noted. continues under close observation. fall and seizure precautions in place and observed at all times. Patient received awake, alert and oriented x4. will educated regarding plan of care for the day, and medication regimen, patient will also be educated regarding all discharge instructions. Patient received no PRNs during plant operator/shift supervisor. last ciwa score of: 4. patient slept 7 hours. will continue to monitor closely. safety measures in place.
[2017-09-10 08:04] VITALS: BP 124/84
[2017-09-10] MEDS: THIAMINE HCL 100 MG TABLET PO SCH (08:23)
[2017-09-10 08:24] VITALS: BP 124/84
[2017-09-10] MEDS: GABAPENTIN 300 MG CAPSULE PO SCH (08:24)
[2017-09-10] MEDS: PROPRANOLOL HCL 20 MG TABLET PO SCH (08:24)
[2017-09-10] MEDS: FOLIC ACID 1 MG TABLET PO SCH (08:24)
[2017-09-10] MEDS: MULTIVITAMINS,THERAPEUTIC TABLET PO SCH (08:24)
--- NOTE | 2017-09-10 09:58 | NUR ---
DISCHARGE Patient discharged off the unit at 0958 in stable condition, not in any apparent acute distress. Prior to discharge patient was provided with education and teaching regarding all discharge instructions with good verbal understanding. Patient with last ciwa score of: 4, vital signs WNL. morning medications were administered as ordered, well tolerated. Patient noted self motivated towards sobriety. Patients home medications, prescriptions and discharge instructions were placed in patients personal duffel bag. patient off the unit at 0958.
== END 2017-09-10 09:58 | DRG 895 ==
LOC: SRC 14:21
PROVIDERS: ADMIT Internal Medicine; ATTEND Internal Medicine
PROC: HZ2ZZZZ Detoxification Services for Substance Abuse Treatment (ICD-10-PCS; principal; 2017-09-03)
PROC: HZ41ZZZ Group Counseling for Substance Abuse Treatment, Behavioral (ICD-10-PCS; 2017-09-05)
PROC: HZ31ZZZ Individual Counseling for Substance Abuse Treatment, Behavioral (ICD-10-PCS; 2017-09-06)
DX: F10.232 Alcohol dependence with withdrawal with perceptual disturbance (principal); K70.10 Alcoholic hepatitis without ascites; I15.9 Secondary hypertension, unspecified; E83.42 Hypomagnesemia; G62.1 Alcoholic polyneuropathy; Y90.6 Blood alcohol level of 120-199 mg/100 ml; K70.0 Alcoholic fatty liver; Z81.1 Family history of alcohol abuse and dependence; F17.210 Nicotine dependence, cigarettes, uncomplicated; F90.9 Attention-deficit hyperactivity disorder, unspecified type; M75.91 Shoulder lesion, unspecified, right shoulder; R73.9 Hyperglycemia, unspecified; F12.90 Cannabis use, unspecified, uncomplicated; D53.9 Nutritional anemia, unspecified; R48.0 Dyslexia and alexia; G47.00 Insomnia, unspecified
CPT/HCPCS: 36415; 70030-TC; 76700; 80307; 82746; 83735; 84443; 85025; 86580; 86592; 86705; 86803; 87340; 87806; 90732; A4663; G0480; J1885; J3411; Q0163